=== PATIENT | male | born 1995 | race Caucasian/White ===

== ENCOUNTER 2018-04-12 11:18 | Emergency (ER) | payer MEDICAID, OTHER ==
[~2018-04-12] VITALS: Ht 172.7 cm; Wt 76.2 kg
[2018-04-12 11:48] VITALS: BP 128/84
--- NOTE | 2018-04-12 13:42 | NUR ---
PATIENT IS A 22 YO MALE BIB SELF FOR MIGRAINE HEADACHE FOR ONE DAY. PATIENT IS AWAKE AND ALERT. DENIES HX OR ALLERGIES. SOME NAUSEA. NO PREVIOUS SIMILAR EVENTS. VITALS ARE STABLE PAIN IS A 9. TO BED 5 AWAITING MD SHARMA.
--- NOTE | 2018-04-12 14:14 | NUR ---
Patient being evaluated by mehdi gillis at bedside.
[2018-04-12] MEDS ORDERED: KETOROLAC 30 MG/ML VIAL IM ONE (14:25)
[2018-04-12] MEDS ORDERED: METOCLOPRAMIDE 10 MG TAB PO ONE (14:25)
[2018-04-12] MEDS ORDERED: diphenhydrAMINE 50 MG CAP PO ONE (14:25)
--- NOTE | 2018-04-12 15:30 | NUR ---
Patient being re-evaluated by VANGIE MOCK at bedside.
[2018-04-12 15:40] VITALS: BP 127/75
--- NOTE | 2018-04-12 15:40 | NUR ---
Patient discharged with v/s stable. Written and verbal after care instructions given and explained. Patient alert, oriented and verbalized understanding of instructions. Ambulatory with steady gait. All questions addressed prior to discharge. ID band removed. Patient advised to follow up with PMD. Rx of AMOXICILIN 500MG, ZOFRAN 4MG ODT AND IBUPROFEN 600MG given. Patient educated on indication of medication including possible reaction and side effects. Opportunity to ask questions provided and answered.
== END 2018-04-12 15:40 | disposition home or self-care (01) ==
LOC: MED 11:18
DX: R51 Headache (principal); K08.89 Other specified disorders of teeth and supporting structures; R11.0 Nausea
CPT/HCPCS: 96372; 99283; J1885; J8597; Q0163

== ENCOUNTER 2019-10-13 04:20 | Emergency (ER) | payer OTHER, SELFPAY ==
[~2019-10-13] VITALS: Ht 172.7 cm; Wt 79.4 kg
[2019-10-13 04:35] VITALS: BP 127/78
--- NOTE | 2019-10-13 04:45 | NUR ---
PT AMBULATED TO BED 8 WITH STEADY GAIT, GIVEN A URINAL IN ORDER TO PROVIDE URINE SAMPLE.
[2019-10-13] MEDS ORDERED: KETOROLAC 30 MG/ML VIAL IVP ONE (04:50)
[2019-10-13] MEDS ORDERED: NACL 0.9% 1,000 ML IV ONE (04:50)
[2019-10-13] MEDS ORDERED: ONDANSETRON 4 MG/2 ML VIAL IVP ONE (04:50)
--- NOTE | 2019-10-13 05:22 | NUR ---
24 year old male presents to ED [facility] c/o vomiting, SOB, body aches, diarrhea x 2 hours. states he woke up x 2 hours and just started vomiting. pt afebrile when arrived to room 8. denies any chest pain. denies any other s/sx. a/o x 4 w/ GCS 15. no injury or trauma observed or noted. awaiting MSE. Connected to cardiac monitoring, pulse oximetry monitoring. positioned for comfort with HOB elevated. safety precautions in place with bed lowest, locked, rails x2. pt denies contact with confirmed covid 19. denies any outside travel. pmhx: denies nka
[2019-10-13 05:25] VITALS: BP 116/79
--- NOTE | 2019-10-13 05:28 | NUR ---
rt ac PIVC initiated. tolerated well.
--- NOTE | 2019-10-13 05:28 | NUR ---
covid swab collected via oropharyngeal way.
[2019-10-13] MEDS ORDERED: MORPHINE SULFATE 4 MG/ML SYR ONE (06:03)
[2019-10-13] MEDS ORDERED: MORPHINE SULFATE 4 MG/ML SYR IM ONE (06:05)
--- NOTE | 2019-10-13 06:53 | NUR ---
Patient discharged with v/s stable. Written and verbal after care instructions given and explained. Patient alert, oriented and verbalized understanding of instructions. Ambulatory with steady gait. All questions addressed prior to discharge. ID band removed. Patient advised to follow up with PMD. Rx of motrin, zofran given. Patient educated on indication of medication including possible reaction and side effects. Opportunity to ask questions provided and answered.
== END 2019-10-13 06:53 | disposition home or self-care (01) ==
LOC: MED 04:20
DX: R10.30 Lower abdominal pain, unspecified (principal); Z20.828 Contact with and (suspected) exposure to other viral communicable diseases; R51 Headache; R11.2 Nausea with vomiting, unspecified
CPT/HCPCS: 96361; 96374; 96375; 99284; J1885; J2270; J2405; U0003

== ENCOUNTER 2021-02-16 00:09 | Emergency (ER) | payer OTHER, SELFPAY ==
[~2021-02-16] VITALS: Ht 172.7 cm; Wt 82.1 kg
[2021-02-16 00:25] VITALS: BP 140/69
--- NOTE | 2021-02-16 00:37 | NUR ---
TO BED AMBULATORY
--- NOTE | 2021-02-16 02:25 | NUR ---
SEEN AND EXAMINED BY NEHA
--- NOTE | 2021-02-16 02:35 | NUR ---
SWAB FOR DELGADO SENT TO LAB
[2021-02-16 03:17] VITALS: BP 140/69
--- NOTE | 2021-02-16 03:17 | NUR ---
Patient discharged with v/s stable. Written and verbal after care instructions given and explained. Patient verbalized understanding. Ambulatory with steady gait. All questions addressed prior to discharge. Advised to follow up with PMD.
== END 2021-02-16 03:17 | disposition home or self-care (01) ==
LOC: MED 00:09
DX: M79.10 Myalgia, unspecified site (principal); Z20.822 Contact with and (suspected) exposure to COVID-19
CPT/HCPCS: 99283

== ENCOUNTER 2021-09-06 20:47 | Emergency (ER) | payer OTHER ==
[~2021-09-06] VITALS: Ht 172.7 cm; Wt 81.2 kg
--- NOTE | 2021-09-06 20:52 | NUR ---
PT BIBA BLS TAKEN TO BED 1
[2021-09-06 20:53] VITALS: BP 128/73
--- NOTE | 2021-09-06 20:55 | NUR ---
PT BIBA BLS ER BED 1
--- NOTE | 2021-09-06 21:07 | NUR ---
Dr. Frey interviewing patient.
[2021-09-06] MEDS ORDERED: methocarbamoL 500 MG TAB PO ONE (21:15)
[2021-09-06] MEDS ORDERED: IBUP-2213 PO (21:35)
[2021-09-06] MEDS ORDERED: METH-1681 PO (21:35)
[2021-09-06 22:52] VITALS: BP 115/87
== END 2021-09-06 22:50 | disposition home or self-care (01) ==
LOC: MED 20:47
DX: S09.90XA Unspecified injury of head, initial encounter (principal); R07.89 Other chest pain; V89.2XXA Person injured in unspecified motor-vehicle accident, traffic, initial encounter; Y93.89 Activity, other specified; Y92.89 Other specified places as the place of occurrence of the external cause; Y99.8 Other external cause status
CPT/HCPCS: 70450; 71045; 93005; 99285

== ENCOUNTER 2022-06-01 23:21 | Emergency (ER) | payer OTHER ==
[~2022-06-01] VITALS: Ht 172.7 cm; Wt 82.6 kg
[~2022-06-01 23:21] MED LIST: IBUP-2213 PO; METH-1681 PO
[2022-06-01 23:31] VITALS: BP 116/92
--- NOTE | 2022-06-01 23:44 | NUR ---
Patient taken to X-ray.
--- NOTE | 2022-06-02 00:02 | NUR ---
PT RETURN FROM XRAY
--- NOTE | 2022-06-02 03:41 | NUR ---
Patient taken to bed 11.
--- NOTE | 2022-06-02 03:59 | NUR ---
Dr. Walden examining patient.
[2022-06-02] MEDS ORDERED: KETOROLAC 30 MG/ML VIAL IM ONE (04:05)
[2022-06-02] MEDS ORDERED: NAPR-54 PO (04:10)
[2022-06-02 04:38] VITALS: BP 117/92
== END 2022-06-02 04:38 | disposition home or self-care (01) ==
LOC: MED 23:21
DX: S63.91XA Sprain of unspecified part of right wrist and hand, initial encounter (principal); Z79.899 Other long term (current) drug therapy; Z79.1 Long term (current) use of non-steroidal anti-inflammatories (NSAID); W20.8XXA Other cause of strike by thrown, projected or falling object, initial encounter; Y93.89 Activity, other specified; Y92.39 Other specified sports and athletic area as the place of occurrence of the external cause; Y99.8 Other external cause status
CPT/HCPCS: 29125; 73130; 96372; 99283; J1885

== ENCOUNTER 2022-07-17 14:29 | Emergency (ER) | payer OTHER ==
[~2022-07-17] VITALS: Ht 172.7 cm; Wt 82.1 kg
[~2022-07-17 14:29] MED LIST changes: +NAPR-54 PO
--- NOTE | 2022-07-17 15:02 | NUR ---
non adherent x 1 and dressing applied to left 3rd digit anterior herminia english. + cms to injured digit after application.
--- NOTE | 2022-07-17 15:08 | NUR ---
Patient discharged with v/s stable. Written and verbal after care instructions FOR [facility] given and explained. Patient verbalized understanding. Ambulatory with steady gait. All questions addressed prior to discharge. Advised to follow up with PMD.
== END 2022-07-17 15:08 | disposition home or self-care (01) ==
LOC: MED 14:29
DX: S60.413A Abrasion of left middle finger, initial encounter (principal); Z79.899 Other long term (current) drug therapy; Z79.1 Long term (current) use of non-steroidal anti-inflammatories (NSAID); W26.0XXA Contact with knife, initial encounter; Y93.89 Activity, other specified; Y92.89 Other specified places as the place of occurrence of the external cause; Y99.8 Other external cause status
CPT/HCPCS: 90471; 90715; 99283